=== PATIENT | female | born 1985 | race Two or more races ===

== ENCOUNTER 2022-01-09 22:50 | Emergency (ER) | payer OTHER ==
[~2022-01-09] VITALS: Ht 162.6 cm; Wt 103.4 kg
[2022-01-09 22:50] VITALS: BP 148/88
[2022-01-09 23:36] LABS: Eosinophils # (auto) 0.3 10 ^3/uL (0-0.8); Hemoglobin 10.7 g/dL (12.2-16.2); Lymphocytes # (auto) 2.8 10 ^3/uL (0.4-5.4); Mean Corpuscular Volume 63.6 fL (80.0-100.0); Monocytes # (auto) 0.5 10 ^3/uL (0-1.3); Monocytes % (auto) 4.3 % (0.0-12.0); Neutrophils # (auto) 7.2 10 ^3/uL (1.6-8.6); Nucleated Red Blood Cells % 0.1 %; White Blood Cell 10.8 10^3/uL (4.4-10.8)
[2022-01-09 23:38] LABS: Basophils # (auto) 0 10 ^3/uL (0-0.2); Basophils % (auto) 0.5 % (0.0-2.0); Eosinophils % (auto) 2.5 % (0.0-7.0); Hematocrit 34.5 % (36.0-46.0); Lymphocytes % (auto) 25.6 % (10.0-50.0); Mean Corpuscular Hemoglobin 19.7 pg (28.0-32.0); Mean Corpuscular Hgb Conc. 31.1 g/dL (32.0-36.0); Neutrophils % (auto) 67.1 % (37.0-80.0); Red Blood Cells 5.42 10^6/uL (4.0-5.20)
[2022-01-09 23:43] LABS: Red Cell Distribution Width 20.3 % (11.8-14.3)
[2022-01-10 00:01] LABS: Albumin 3.6 g/dL (3.4-5.0); BUN/Creatinine Ratio 13.2; Calcium 8.9 mg/dL (8.5-10.1); Potassium 3.7 mmol/L (3.5-5.1)
[2022-01-10 00:04] LABS: Bilirubin, Total 0.2 mg/dL (0.2-1.0); Total Protein 7.7 g/dL (6.4-8.2)
[2022-01-10] MEDS ORDERED: MECL1TAB42 PO (00:09)
== END 2022-01-10 02:31 | disposition home or self-care (01) ==
LOC: ER 22:52
DX: D64.9 Anemia, unspecified (principal); R42 Dizziness and giddiness
CPT/HCPCS: 36415; 70450; 80053; 85025

== ENCOUNTER 2022-11-16 18:31 | Emergency (ER) | payer OTHER ==
[~2022-11-16 18:31] MED LIST: MECL1TAB42 PO
[2022-11-16] MEDS ORDERED: PRED20TA2 PO (22:39)
[2022-11-16] MEDS ORDERED: AMOX-277 PO (22:39)
[2022-11-16] MEDS ORDERED: methylPREDNISolone SOD SUCC 125 MG/2 ML VL IM ONE (22:45)
[2022-11-16] MEDS ORDERED: cefTRIAXone SOD 1,000 MG VL IM ONE (22:45)
[2022-11-16 23:09] VITALS: BP 124/73
[2022-11-16] MEDS ORDERED: ACETAMINOPHEN 325 MG TAB PO ONE (23:30)
== END 2022-11-17 00:28 | disposition home or self-care (01) ==
LOC: ER 18:33
DX: J06.9 Acute upper respiratory infection, unspecified (principal); J45.909 Unspecified asthma, uncomplicated; Z20.822 Contact with and (suspected) exposure to COVID-19
CPT/HCPCS: 36415; 87426; 87804; 96372; 99284; J0696; J2930

== ENCOUNTER 2024-04-11 11:19 | Emergency (ER) | payer BC, OTHER ==
[~2024-04-11] VITALS: Ht 162.6 cm; Wt 100.2 kg
[~2024-04-11 11:19] MED LIST changes: +AMOX875T4 PO; +PRED20TA2 PO
[2024-04-11 13:36] VITALS: BP 148/87; PULSE 88; RESP 16; TEMP 98.4; O2SAT 100
[2024-04-11] MEDS: ONDANSETRON ODT 4 MG TAB PO ONE (14:05)
[2024-04-11] MEDS: KETOROLAC TROMETH 30 MG/ML 1ML VIAL IM ONE (14:05)
[2024-04-11] MEDS ORDERED: SUMA50TA16 PO (15:03)
[2024-04-11] MEDS ORDERED: ZOFR4T PO (15:03)
== END 2024-04-11 15:07 | disposition home or self-care (01) ==
LOC: ER 11:19
DX: R51.9 Headache, unspecified (principal); J45.909 Unspecified asthma, uncomplicated; Z79.52 Long term (current) use of systemic steroids; Z79.899 Other long term (current) drug therapy
CPT/HCPCS: 70450; 96372; 99285; J1885; Q0162

== ENCOUNTER 2025-04-12 23:01 | Inpatient (IN) | payer BC, OTHER ==
[~2025-04-12] VITALS: Ht 163.8 cm; Wt 104.3 kg
[~2025-04-12 23:01] MED LIST changes: +SUMA50TA16 PO; +ZOFR4T PO
[2025-04-13] VITALS (15 sets, daily range): BP systolic 119–146; BP diastolic 67–91; PULSE 66–95; RESP 16–18; TEMP 97.5–98.6; O2SAT 95–99
--- NOTE | 2025-04-13 00:21 | ED.PDOC ---
History of Present Illness HPI Comments 39-year-old female with a history of heavy menses, anemia and asthma brought in by family, referred by primary doctor for evaluation of anemia. Patient states for over a month, has been having episodes of dizziness, fatigue, weakness, shortness of breath, and dyspnea with mild exertion. Patient states she was seen by her primary physician on 04/04/25, and was contacted today, advised her hemoglobin was 6 and that she should go to the emergency room. Patient reports her last menstrual period was 03/15-04/02/2025. She states she began spotting today. She denies any abdominal pain, chest pain, syncope, vision changes or focal weakness. Chief Complaint: Dizziness Time Seen by MD: 00:21 Primary Care Provider: JAD Jules Notes: Nurses Notes Allergies: Coded Allergies: NO KNOWN ALLERGIES (Unverified , 01/09/22) Home Meds Active Scripts Ondansetron Odt 4MG Tab (ZOFRAN PO) 4 Mg Tb, 4 MG PO Q8HP PRN for 5 Days, #15 TAB ODT TAB-DISSOLVE IN MOUTH, THEN SWALLOW Prov:SHANNAN DELACRUZ NP 04/11/24 Sumatriptan Succinate (Sumatriptan Succinate) 50 Mg Tab, 50 MG PO BIDPRN PRN for 5 Days, #10 TAB Prov:SHANNAN DELACRUZ NP 04/11/24 Amoxicillin & Pot Clavulanate (Amoxicillin/Potassium Cla) 875 Mg Tab, 1 TAB PO BID for 7 Days, #14 TAB 0 Refills Prov:SANDRA CASTELLANOS 11/16/22 Prednisone (Prednisone) 20 Mg Tab, 20 MG PO BID for 5 Days, #10 TAB 0 Refills Prov:SANDRA CASTELLANOS 11/16/22 Meclizine HCl (Meclizine 25) 25 Mg Tab, 25 MG PO DAILY for 10 Days, #10 TAB Prov:YEFRI UNDERWOOD MD 01/10/22 Information Source: Patient Mode of Arrival: Ambulatory Severity: Moderate Timing: Days Duration: Since onset Past Medical History PAST MEDICAL HISTORY: Anemia, Asthma Surgical History (Other): Colposcopy MEDICAL EDITOR History: Other (Heavy, irregular menses.) Family History Family History: Reviewed,noncontributory to illness Social History Smoker: Non-Smoker Alcohol: Denies ETOH Use Drugs: Denies Drug Use Lives In: Home Constitutional: reports: fatigue, weakness; denies: chills, diaphoresis, fever, malaise, sweats, others EENTM: denies: blurred vision, double vision, ear bleeding, ear discharge, ear drainage, ear pain, ear ringing, eye pain, eye redness, hearing loss, mouth pain, mouth swelling, nasal discharge, nose bleeding, nose congestion, nose pain, photophobia, tearing, throat pain, throat swelling, voice changes, others Respiratory: reports: SOB at rest, shortness of breath, SOB with excertion; denies: cough, hemoptysis, orthopnea, stridor, wheezing, others Cardiovascular: denies: chest pain, dizzy spells, diaphoresis, Dyspnea on exertion, edema, irregular heart beat, left arm pain, lightheadedness, palpitations, PND, syncope, others Gastrointestinal: denies: abdomen distended, abdominal pain, blood streaked bowels, constipated, diarrhea, dysphagia, difficulty swallowing, hematemesis, melena, nausea, poor appetite, poor fluid intake, rectal bleeding, rectal pain, vomiting, others Genitourinary: denies: abnormal vagina bleeding, burning, dyspareunia, dysuria, flank pain, frequency, hematuria, incontinence, pain, , vagina discharge, urgency, others Neurological: reports: dizziness; denies: fainting, headache, left sided numbness, left sided weakness, numbness, paresthesia, pre-existing deficit, right sided numbness, right sided weakness, seizure, speech problems, tingling, tremors, weakness, others Musculoskeletal: denies: back pain, gout, joint pain, joint swelling, muscle pain, muscle stiffness, neck pain, others Integumetry: denies: bruises, change in color, change in hair/nails, dryness, laceration, lesions, lumps, rash, wounds, others Allergic/Immunocompromised: denies: Difficulty Healing, Frequent Infections, Hives, Itching, others Hematologic/Lymphatic: denies: anemia, blood clots, easy bleeding, easy bruising, swollen glands, others Endocrine: denies: excessive hunger, excessive sweating, excessive thirst, excessive urination, flushing, intolerance to cold, intolerance to heat, unexplained weight gain, unexplained weight loss, others Psychiatric: denies: anxiety, bipolar disorder, depression, hopeless, panic disorder, schizophrenia, sleepless, suicidal, others Physical Exam General Appearance: No Apparent Distress, Obese HEENT: Pale Conjuntivae (L), Pale Conjuntivae (R), Other (Pupils and face symmetric. Moist mucous membranes.) Neck: Full Range of Motion, Normal Inspection Respiratory: Lungs Clear, No Accessory Muscle Use, No Respiratory Distress, Normal Breath Sounds Cardiovascular: No Edema, No JVD, Regular Rate/Rhythm Breast Exam: Deferred Gastrointestinal: Non Tender, Soft Genitalia: Deferred Pelvic: Deferred Rectal: Deferred Extremities: Normal inspection, Normal range of motion, Non-tender, No pedal edema Neurologic: Alert (Oriented x4), Normal Affect, Normal Mood, Other (Ambulatory) Cerebellar Function: NOT DONE Reflexes: NOT DONE Skin: Dry, Pallor, Warm Lymphatic: NOT DONE Was a procedure done? Was a procedure done?: No Differential Dx Considerations may include: Anemia, coagulopathy, dehydration/hypovolemia, electrolyte imbalance, arrhythmia, among others X-Ray, Labs, Meds, VS Vital Signs Date Time Temp Pulse Resp B/P (MAP) Pulse Ox O2 Delivery O2 Flow Rate FiO2 04/13/25 00:00 98.2 94 20 152/87 (108) 99 98.2 Lab Test 04/13/25 00:55 04/13/25 00:08 Range/Units Troponin I High Sensitivity < 3 L < 3 L </=34 ng/L White Blood Count 9.8 4.4-10.8 10^3/uL Red Blood Count 4.39 4.0-5.20 10^6/uL Hemoglobin 6.6 *L 12.2-16.2 g/dL Hematocrit 23.5 L 36.0-46.0 % Mean Corpuscular Volume 53.6 L 80.0-100.0 fL Mean Corpuscular Hemoglobin 15.0 L 28.0-32.0 pg Mean Corpuscular Hemoglobin Concent 28.0 L 32.0-36.0 g/dL Red Cell Distribution Width 23.1 H 11.8-14.3 % Platelet Count 293 140-450 10^3/uL Mean Platelet Volume 8.3 6.9-10.8 fL Neutrophils (%) (Auto) 67.1 37.0-80.0 % Lymphocytes (%) (Auto) 27.0 10.0-50.0 % Monocytes (%) (Auto) 3.6 0.0-12.0 % Eosinophils (%) (Auto) 1.6 0.0-7.0 % Basophils (%) (Auto) 0.7 0.0-2.0 % Neutrophils # (Auto) 6.6 1.6-8.6 10 ^3/uL Lymphocytes # (Auto) 2.6 0.4-5.4 10 ^3/uL Monocytes # (Auto) 0.4 0-1.3 10 ^3/uL Eosinophils # (Auto) 0.2 0-0.8 10 ^3/uL Basophils # (Auto) 0.1 0-0.2 10 ^3/uL Nucleated Red Blood Cells 0.0 % Platelet Estimate Adequate Hypochromasia (manual) Moderate Anisocytosis (manual) Slight Microcytosis Moderate Ovalocytes Few Stomatocytes Moderate Prothrombin Time 10.4 9.3-11.8 sec Prothrombin Time INR 0.98 0.9-1.15 Activated Partial Thromboplast Time 24.5 24.5-34.5 SEC Sodium Level 141 136-145 mmol/L Potassium Level 3.8 3.5-5.1 mmol/L Chloride Level 106 98-107 mmol/L Carbon Dioxide Level 27 20-31 mmol/L Anion Gap 8 5-15 Blood Urea Nitrogen 12 9-23 mg/dL Creatinine 0.76 0.550-1.02 mg/dL Glomerular Filtration Rate Calc 103 >90 mL/min BUN/Creatinine Ratio 15.8 10.0-20.0 Serum Glucose 149 H 74-106 mg/dL Calcium Level 9.5 8.7-10.4 mg/dL X-Ray, Labs, Meds, VS Comment 39-year-old female with a history of heavy/ irregular menses and anemia referred by primary physician for evaluation of severe anemia Vitals remarkable for BP 152/87 Exam remarkable for pallor Rhythm strip independently interpreted by me: Sinus rhythm, rate 94, no ectopy. CBC remarkable for hemoglobin 6.6, hematocrit 23.5, basic metabolic panel unremarkable, coagulation panel normal Patient treated with the following in the ED: Typed and crossed for 2 units of packed red cells and transfusion ordered. Plan is to admit the patient for transfusion and hemoglobin trend. Time of 1ST Reevaluation: 00:14 Reevaluation 1ST: Unchanged Patient Education/Counseling: Diagnosis, Treatment Family Education/Counseling: No Family Present SEPSIS Sepsis Screen Physician Orders Electrocardigram (04/13/25 00:02) Type And Screen (04/13/25 00:02) Vital Signs Date Time Temp Pulse Resp B/P (MAP) Pulse Ox O2 Delivery O2 Flow Rate FiO2 04/13/25 00:00 98.2 94 20 152/87 (108) 99 98.2 Laboratory Tests Test 04/13/25 00:08 White Blood Count 9.8 10^3/uL (4.4-10.8) Departure 1 Departure Time of Disposition: 02:02 Impression: Primary Impression: Symptomatic anemia Disposition: ADMITTED INPATIENT Admit to: Med Surg Condition: Guarded Critical Care Note Critical Care Time?: No Stability Stability form required: No Heart Score Heart Score: Heart Score Response (Comments) Value History N/A 0 EKG N/A 0 Age N/A 0 Risk Factors N/A 0 Troponin N/A 0 Total 0 I personally scribed for CRISTHIAN SOLOMON MD ([email or web address]) on 04/13/25 at 00:21. Electronically submitted by Fabien Israel ([facility]). CRISTHIAN SOLOMON MD Apr 13, 2025 00:21
[2025-04-13 00:31] LABS: Nucleated Red Blood Cells % 0.0 %
[2025-04-13 00:32] LABS: Hematocrit 23.5 % (36.0-46.0); Mean Corpuscular Hemoglobin 15.0 pg (28.0-32.0); Mean Corpuscular Volume 53.6 fL (80.0-100.0)
[2025-04-13 00:36] LABS: Hemoglobin 6.6 g/dL (12.2-16.2)
[2025-04-13 00:38] LABS: Chloride 106 mmol/L (98-107); Potassium 3.8 mmol/L (3.5-5.1); Sodium 141 mmol/L (136-145)
[2025-04-13 00:39] LABS: Anion Gap 8 (5-15); Carbon Dioxide 27 mmol/L (20-31)
[2025-04-13 00:40] LABS: Calcium 9.5 mg/dL (8.7-10.4)
[2025-04-13 00:44] LABS: BUN/Creatinine Ratio 15.8 (10.0-20.0); Blood Urea Nitrogen 12 mg/dL (9-23); INR 0.98 (0.9-1.15); Partial Thromboplastin Time 24.5 SEC (24.5-34.5); Prothrombin Time 10.4 sec (9.3-11.8)
[2025-04-13 00:45] LABS: Glucose 149 mg/dL (74-106)
[2025-04-13 01:29] LABS: Anisocytosis Slight
[2025-04-13 01:34] LABS: Ovalocytes FEW; Stomatocytes Moderate
[2025-04-13] MEDS ORDERED: ONDANSETRON HCL 4 MG/2 ML VIAL IV PRN (02:15)
[2025-04-13] MEDS: SODIUM CHLORIDE 0.9% 1,000 ML IV SCH (02:15)
[2025-04-13] MEDS ORDERED: DOCUSATE SOD 100 MG CAP PO PRN (02:15)
--- NOTE | 2025-04-13 02:20 | DVHHP2 ---
History of Present Illness Reason for Visit: Symptomatic anemia History of Present Illness The patient is a 39-year-old female with past medical history of asthma and anemia who presented to [facility] ED with complaint of generalized weakness. Patient reports she has been experiencing generalized weakness, episodes of dizziness, fatigue, shortness of breaths, dyspnea with mild exertion for the past 1 month. Patient states she was seen by her primary physician on 04/04/25, and was contacted today, advised her hemoglobin was 6 and that she should go to the emergency room. Patient was seen and evaluated in the ED, laboratory data shows WBC 9.8, hemoglobin 6.6, hematocrit 23.5, platelets 285, sodium 141, potassium 3.8, BUN 12, creatinine 0.76, calcium 9.5, glucose 149, troponin 3, blood pressure 132/67, heart rate 76, temperature 98.8 F, O2 saturation 99% on oxygen. Patient was found to have symptomatic anemia and will receive 2 units of PRBC, please see medication orders section in the computer. On my assessment, patient denied chest pain, no headache, no dizziness, no diaphoresis, currently on oxygen, no nausea, no vomiting, no fever, no chills. Patient was admitted for further evaluation and medical management. Past Medical History Anemia, Asthma, Heavy menses Past Surgical History Colposcopy Family History Reviewed, noncontributory to the management of this case. Past Social History The patient lives at home, denies smoking, alcohol or illicit drugs abuse. Review of Systems Constitutional: Yes: Weakness, Other (Fatigue); No: Fever, Chills, Sweats, Malaise Eyes: No: Pain, Vision change, Conjunctivae inflammation, Eyelid inflammation, Other, Redness ENT: No: Ear pain, Ear discharge, Nose pain, Nose discharge, Nose congestion, Mouth pain, Mouth swelling, Throat pain, Throat swelling, Other Respiratory: Shortness of breath, SOB with excertion, Other (SOB at rest); No: Cough, Dry, Wheezing, Hemoptysis, Pleuritic Pain, Sputum, Wheezing Cardiovascular: No: Chest Pain, Palpitations, Orthopnea, Paroxysmal Noc. Dyspnea, Edema, Lt Headedness, Other Gastrointestinal: No: Nausea, Vomiting, Abdominal Pain, Diarrhea, Constipation, Melena, Hematochezia, Other Genitourinary: No Dysuria, No Frequency, No Incontinence, No Hematuria, No Rete ntion, No Other Musculoskeletal: No: other, neck pain, shoulder pain, arm pain, back pain, hand pain, leg pain, foot pain Skin: No: Rash, Lesions, Jaundice, Bruising, Other Neurological: No: Weakness, Numbness, Incoordination, Change in speech, Confusion, Seizures, Other Allergies: Coded Allergies: NO KNOWN ALLERGIES (Unverified , 01/09/22) Medications Current Medications Medications Dose Ordered Sig/Sidney Route Start Time Stop Time Status Last Admin Dose Admin Sodium Chloride 1,000 ml @ 60 mls/hr [id number] IV 04/13/25 02:15 Acetaminophen/ Hydrocodone Bitart 1 tab Q4HP PRN PO 04/13/25 02:15 Ondansetron HCl 4 mg Q4HP PRN IV 04/13/25 02:15 Docusate Sodium 100 mg BIDPRN PRN PO 04/13/25 02:15 Acetaminophen 650 mg Q6HP PRN PO 04/13/25 02:15 Exam Vital Signs Vital Signs Date Time Temp Pulse Resp B/P (MAP) Pulse Ox O2 Delivery O2 Flow Rate FiO2 04/13/25 00:00 98.2 94 20 152/87 (108) 99 98.2 General Appearance: Alert, Oriented X3, Cooperative, No acute distress HEENT: Atraumatic, PERRLA, EOMI, Mucous membr. moist/pink Respiratory: Normal air movement, Other (Shortness of breaths) Cardiovascular: Regular rate, Normal S1, Normal S2, No murmurs Abdominal: Normal bowel sounds, Soft, No tenderness, No hepatospenomegaly, No masses Extremities: No clubbing, No cyanosis, No edema, Normal pulses, No tenderness/swelling Skin: No rashes, No breakdown, No significant lesion Neuro: Normal speech, Normal tone, Sensation intact, Cranial nerves 3-12 NL, Reflexes 2+, Other (Generalized weakness) Psych/Mental Status: Mental status NL, Mood NL Labs/Xrays Labs Test 04/13/25 00:55 04/13/25 00:08 Range/Units Troponin I High Sensitivity < 3 L </=34 ng/L White Blood Count 9.8 4.4-10.8 10^3/uL Red Blood Count 4.39 4.0-5.20 10^6/uL Hemoglobin 6.6 *L 12.2-16.2 g/dL Hematocrit 23.5 L 36.0-46.0 % Mean Corpuscular Volume 53.6 L 80.0-100.0 fL Mean Corpuscular Hemoglobin 15.0 L 28.0-32.0 pg Mean Corpuscular Hemoglobin Concent 28.0 L 32.0-36.0 g/dL Red Cell Distribution Width 23.1 H 11.8-14.3 % Platelet Count 293 140-450 10^3/uL Mean Platelet Volume 8.3 6.9-10.8 fL Neutrophils (%) (Auto) 67.1 37.0-80.0 % Lymphocytes (%) (Auto) 27.0 10.0-50.0 % Monocytes (%) (Auto) 3.6 0.0-12.0 % Eosinophils (%) (Auto) 1.6 0.0-7.0 % Basophils (%) (Auto) 0.7 0.0-2.0 % Neutrophils # (Auto) 6.6 1.6-8.6 10 ^3/uL Lymphocytes # (Auto) 2.6 0.4-5.4 10 ^3/uL Monocytes # (Auto) 0.4 0-1.3 10 ^3/uL Eosinophils # (Auto) 0.2 0-0.8 10 ^3/uL Basophils # (Auto) 0.1 0-0.2 10 ^3/uL Nucleated Red Blood Cells 0.0 % Platelet Estimate Adequate Hypochromasia (manual) Moderate Anisocytosis (manual) Slight Microcytosis Moderate Ovalocytes Few Stomatocytes Moderate Prothrombin Time 10.4 9.3-11.8 sec Prothrombin Time INR 0.98 0.9-1.15 Activated Partial Thromboplast Time 24.5 24.5-34.5 SEC Sodium Level 141 136-145 mmol/L Potassium Level 3.8 3.5-5.1 mmol/L Chloride Level 106 98-107 mmol/L Carbon Dioxide Level 27 20-31 mmol/L Anion Gap 8 5-15 Blood Urea Nitrogen 12 9-23 mg/dL Creatinine 0.76 0.550-1.02 mg/dL Glomerular Filtration Rate Calc 103 >90 mL/min BUN/Creatinine Ratio 15.8 10.0-20.0 Serum Glucose 149 H 74-106 mg/dL Calcium Level 9.5 8.7-10.4 mg/dL Assessment/Plan Assessment/Plan Symptomatic anemia Generalized weakness Plan 1. Admit to telemetry unit 2. Breathing treatment 3. Pain control management 4. Management of fluids and electrolytes 5. Consultation for hospitalist 6. Diagnostic tests chest x-ray 7. DVT prophylaxis on SCDs 8. Repeat labs CBC, CMP in a.m. 9. Continue with current medical management 10. Treatment plan discussed with patient and RN. Patient verbalized understanding. Plan discussed with: Patient, Other (R.N.) My Orders Orders - MARANDA WARE DNP Procedure Category Date Status Time Complete Blood Count LAB 04/13/25 Logged 04:00 Comprehensive LAB 04/13/25 Logged Metabolic Panel 04:00 Allergies [place] 04/13/25 In Process 02:04 Code Status CODE 04/13/25 Transmitted 02:04 2 Gm Sodium Diet DIET 04/13/25 Transmitted Breakfast Sodium Chloride 0.9% PHA 04/13/25 In Process 02:15 Oxygen Per Hour RT 04/13/25 Transmitted 02:04 Hydrocodone-Acet PHA 04/13/25 In Process 5/325mg Tab ([place] 02:15 Ondansetron Hcl PHA 04/13/25 In Process (Zofran) 02:15 Docusate Sodium PHA 04/13/25 In Process Capsule (Colace 02:15 Fall Risk Precautions [place] 04/13/[address] 02:04 Complete Blood Count LAB 04/14/25 Verified 04:00 Comprehensive LAB 04/14/25 Verified Metabolic Panel 04:00 Condition: Serious [place] 04/13/25 In Process 02:04 Acetaminophen Tablet PHA 04/13/25 In Process (Tylenol Tablet) 02:15 Maintain Bed Rest [place] 04/13/25 In Process 02:04 Sequential [place] 04/13/25 In Process Compression Device Admit ADMIT 04/13/25 Verified 02:18 Nitroglycerin PHA 04/13/25 Verified Sublingual (Ntrostat 02:30 Morphine Sulfate PHA 04/13/25 Verified Injection 02:30 Stat Ekg For Chest [facility] 04/13/25 Verified Pain 02:18 Notify Md Of Changes [place] 04/13/25 Verified From Base 02:18 Candy Vendor For [facility] 04/13/25 Verified 24 Hours 02:18 Emergency Dysrhythmia [facility] 04/13/25 Verified Protocol 02:18 Rhythm Strips Once 04/13/25 Verified Every Shift 02:18 Oxygen By Nasal RT 04/13/25 Verified Cannula 02:18 Problem List: (1) Symptomatic anemia (2) Generalized weakness Date of Service: Apr 13, 2025 Billing Provider: MARANDA WARE DNP Common Visit Codes: [id number] INP/OBS CARE (HIGH) MARANDA WARE DNP Apr 13, 2025 02:19
[2025-04-13] MEDS ORDERED: NITROGLYCERIN 0.4 MG SL TAB SL PRN (02:30)
[2025-04-13] MEDS ORDERED: MORPHINE SULFATE INJ 2 MG/ml SYRG IV PRN (02:30)
[2025-04-13 04:03] LABS: Alanine Aminotransferase 27 U/L (7-40); Albumin 4.6 g/dL (3.2-4.8); Alkaline Phosphatase 82 U/L (46-116); Anion Gap 9 (5-15); BUN/Creatinine Ratio 12.9 (10.0-20.0); Blood Urea Nitrogen 9 mg/dL (9-23); Calcium 9.6 mg/dL (8.7-10.4); Carbon Dioxide 23 mmol/L (20-31); Chloride 106 mmol/L (98-107); Potassium 4.7 mmol/L (3.5-5.1); Sodium 138 mmol/L (136-145); Total Protein 7.5 g/dL (5.7-8.2)
[2025-04-13 04:04] LABS: Bilirubin, Total 0.5 mg/dL (0.2-1.0)
[2025-04-13 04:07] LABS: Glucose 135 mg/dL (74-106)
[2025-04-13 04:18] LABS: Mean Corpuscular Hemoglobin 15.2 pg (28.0-32.0); Mean Corpuscular Volume 55.8 fL (80.0-100.0)
[2025-04-13 04:20] LABS: Hematocrit 24.6 % (36.0-46.0); Nucleated Red Blood Cells % 0.1 %
[2025-04-13 04:39] LABS: Hemoglobin 6.7 g/dL (12.2-16.2)
[2025-04-13 13:53] LABS: Hematocrit 29.0 % (36.0-46.0); Hemoglobin 8.5 g/dL (12.2-16.2)
--- NOTE | 2025-04-13 14:43 | DVHPNRES ---
Progress Note Date Seen: Apr 13, 2025 Resident Creating Document: DOMINICK TALAVERA RESIDENT Has the PT tested + for MRSA If YES, has PT been informed?: No Medical Necessity Reason Pt with a Central, PICC or Fol: No Subjective Review of Systems This is a 39-year-old female with past medical history of asthma, anemia, heavy menstrual periods irregular in nature, who presented to the ED with chief complaint of generalized weakness fatigue and shortness of breaths. The patient reports that the symptoms has been occurring for the past three weeks end-stage that she received a call from her PCP stating that her hemoglobin was significantly low and that she needed to come to the ED for further assessment and management. Upon admission, patient was reporting generalized weakness, fatigue, low energy. The patient denied chest pain, abdominal pain, fever/chills or any other associated symptoms. Initial labs showed a hemoglobin of 6.6 for which the patient was ordered to receive two packs of red blood cells. We ordered stool occult blood test, Von Willebrand factor antigen, rubs cold aside count, pelvic ultrasound and peripheral smear. We will repeat hemoglobin and hematocrit and monitor closely for severe anemia. Upon my examination, the patient is not reporting any abdominal or pelvic pain at this time. There is no evidence of active bleeding at this time. Patient does reports spotting vaginally gee. Patient seen and examined at bedside. Patient denies abdominal pain, pelvic pain, chest pain, fever/chills or any other associated symptoms at this time. Patient still reports feeling weak and fatigued. We will order stool occult blood test, reticulocyte count, we will umbilical factor antigen, pelvic ultrasound and peripheral smear. Meanwhile, we will monitor hemoglobin and hematocrit. We will continue with IV fluids. ROS Constitutional: Reports generalized weakness and fatigue with decreased energy. Denies weight loss, fever and chills. HEENT: Denies changes in vision and hearing. Respiratory: Denies shortness of breath and cough Cardiovascular: Denies chest discomfort or palpitations GI: Denies abdominal pain, nausea, vomiting and diarrhea. : Denies dysuria and urinary frequency. Musculoskeletal: Denies myalgias and joint pain Skin: Denies rash and pruritus. Neurological: Denies dizziness, headache, vision or hearing problems Objective vital signs Vital Sign Date Time Temp Pulse Resp B/P (MAP) Pulse Ox O2 Delivery O2 Flow Rate FiO2 04/13/25 13:00 98.5 66 18 132/84 (100) 97 98.5 04/13/25 08:10 Room Air* 0 21 Total Intake and Output 04/12/25 04/12/25 04/13/25 15:00 23:00 07:00 Intake Total 0 ml Output Total 0 ml Balance 0 ml medications Current Medications Medications Dose Ordered Sig/Sidney Route Start Time Stop Time Status Last Admin Dose Admin Sodium Chloride 1,000 ml @ 60 mls/hr [id number] IV 04/13/25 02:15 04/13/25 02:15 60 MLS/HR Acetaminophen/ Hydrocodone Bitart 1 tab Q4HP PRN PO 04/13/25 02:15 Ondansetron HCl 4 mg Q4HP PRN IV 04/13/25 02:15 Docusate Sodium 100 mg BIDPRN PRN PO 04/13/25 02:15 Acetaminophen 650 mg Q6HP PRN PO 04/13/25 02:15 Nitroglycerin 0.4 mg Q5MINP PRN SL 04/13/25 02:30 Morphine Sulfate 2 mg Q30M PRN IV 04/13/25 02:30 Examination Physical Examination General: Patient alert and oriented in person, place and time. Patient following commands. HEENT: Normocephalic, atraumatic, moist mucous membranes Respiratory/pulmonary: Clear lungs bilaterally, no associated crackles or wheezes. Cardiovascular: Normal heart sounds S1 and S2 with no associated murmurs Abdomen: Abdomen nondistended, there is no pain to palpation in any of the abdominal quadrants, no palpable masses. Extremities: There is no peripheral edema present at the lower extremities. Skin: No rashes or pruritus, there is no sacral edema present at this time. Neurological: Intact cranial nerves with no focal neurologic deficits laboratory and microbiology Laboratory Tests 04/13/25 13:19 04/13/25 03:35 Test 04/13/25 03:35 Range/Units Serum Glucose 135 H 74-106 mg/dL Problem List/Assessment/Plan Problem List/Assessment/Plan Assessment/plan Acute severe microcytic hypochromic anemia likely due to severe menorrhagia Severe menorrhagia History of heavy irregular menstrual bleeding -initially hemoglobin was 6.6 -2 packet of red blood cells was given -we will recheck and monitor hemoglobin and hematocrit -continue IV fluids -ordered pelvic ultrasound -ordered peripheral smear -order reticulocyte count -ordered stool occult blood test -ordered Von willebrand factor antigen History of asthma, controlled -monitor, patient is currently on room air Goals of care discussed with the patient at bedside for >35min, FULL CODE Plan discussed with Dr. Mas Plan discussed with: Patient My Orders My Orders Orders - DOMINICK TALAVERA Procedure Category Date Status Time Urinalysis LAB 04/13/25 Logged 10:07 Drug Screen LAB 04/13/25 Logged 10:07 DOMINICK TALAVERA Apr 13, 2025 14:43
[2025-04-13 15:14] LABS: Wright Stain Ready for Review
--- NOTE | 2025-04-13 18:01 | DVH ---
Procedure: US PELVIC Study Date and Requested Time: 04/13/2025 02:44 PM Study Description: US PELVIC History: eval uterine lining and cause of bleeding Comparison: None Technique: Multiple transabdominal and transvaginal high resolution craig-scale images obtained of the uterus and adnexa with color Doppler for evaluation of adnexal blood flow and vascularity as indicat ed. Findings: Uterus measures 3.3 x 2.9 x 2.9 cm, with heterogeneous echotexture. Endometrium within normal limits, measuring 1 cm in thickness with smooth contour. Cervix within normal limits. Right ovary measures 3.3 x 2.9 x 2.9 cm with a 1 cm cyst /dominant follicle. Left ovary measures 3 x 2.3 x 2.6 cm with a 1.1 cm cyst /dominant follicle. Normal ovarian color Doppler flow bilaterally. No evidence of cystic or solid ovarian lesions. No evidence of free fluid in the cul-de-sac. Impression: Heterogeneous echotexture of the uterus. Endometrial thickness of 1 cm which is within normal limits . Recommend correlation with phase of menstrual cycle. 1 cm right and 1.1 cm left ovarian cyst/dominant follicles.
[2025-04-13] MEDS: ACETAMINOPHEN 325 MG TAB PO PRN (18:32)
[2025-04-14] VITALS (7 sets, daily range): BP systolic 118–138; BP diastolic 79–99; PULSE 18–79; RESP 16–97; TEMP 96.5–97.7; O2SAT 96–99
[2025-04-14] MEDS: HYDROcodone-ACET 5/325MG TAB PO PRN (01:03)
[2025-04-14 02:46] LABS: Urine Budding Yeast OCCASIONAL /hpf (None Seen); Urine Protein, UAD Negative (Negative)
[2025-04-14 03:13] LABS: Amphetamine Screen, Urine Neg (NEGATIVE); Barbiturate Scree,Urine Neg (NEGATIVE); Benzodiazephine Screen, Urine Neg (NEGATIVE); Cocaine Screen, Urine Neg (NEGATIVE)
[2025-04-14 03:14] LABS: Cannabinoid Screen, Urine Neg (NEGATIVE); Opiate Scree,Urine Neg (NEGATIVE); Phencyclidine Screen, Urine Neg (NEGATIVE)
[2025-04-14 07:38] LABS: Hematocrit 30.3 % (36.0-46.0); Hemoglobin 9.0 g/dL (12.2-16.2); Mean Corpuscular Hemoglobin 18.1 pg (28.0-32.0); Mean Corpuscular Volume 61.0 fL (80.0-100.0); Nucleated Red Blood Cells % 0.1 %
[2025-04-14 07:52] LABS: Alanine Aminotransferase 21 U/L (7-40); Albumin 4.2 g/dL (3.2-4.8); Alkaline Phosphatase 75 U/L (46-116); Anion Gap 9 (5-15); BUN/Creatinine Ratio 11.4 (10.0-20.0); Blood Urea Nitrogen 9 mg/dL (9-23); Calcium 10.1 mg/dL (8.7-10.4); Carbon Dioxide 25 mmol/L (20-31); Chloride 107 mmol/L (98-107); Potassium 4.1 mmol/L (3.5-5.1); Sodium 141 mmol/L (136-145); Total Protein 7.1 g/dL (5.7-8.2)
[2025-04-14 07:53] LABS: Bilirubin, Total 0.7 mg/dL (0.2-1.0); Glucose 111 mg/dL (74-106)
[2025-04-14 08:34] LABS: Anisocytosis Moderate
[2025-04-14 08:35] LABS: Ovalocytes FEW; Stomatocytes Few
[2025-04-14] MEDS: FERROUS SULFATE 325mg EC TAB PO SCH (08:35)
[2025-04-14 10:05] LABS: Hematocrit 30.4 % (36.0-46.0); Hemoglobin 8.9 g/dL (12.2-16.2); Mean Corpuscular Hemoglobin 18.0 pg (28.0-32.0); Mean Corpuscular Volume 61.0 fL (80.0-100.0); Nucleated Red Blood Cells % 0.1 %
--- NOTE | 2025-04-14 13:07 | DVHPNRES ---
Progress Note Date Seen: Apr 14, 2025 Resident Creating Document: DOMINICK TALAVERA RESIDENT Has the PT tested + for MRSA If YES, has PT been informed?: No Medical Necessity Reason Pt with a Central, PICC or Fol: No Subjective Review of Systems This is a 39-year-old female with past medical history of asthma, anemia, heavy menstrual periods irregular in nature, who presented to the ED with chief complaint of generalized weakness fatigue and shortness of breaths. The patient reports that the symptoms has been occurring for the past three weeks end-stage that she received a call from her PCP stating that her hemoglobin was significantly low and that she needed to come to the ED for further assessment and management. Upon admission, patient was reporting generalized weakness, fatigue, low energy. The patient denied chest pain, abdominal pain, fever/chills or any other associated symptoms. Initial labs showed a hemoglobin of 6.6 for which the patient was ordered to receive two packs of red blood cells. We ordered stool occult blood test, Von Willebrand factor antigen, rubs cold aside count, pelvic ultrasound and peripheral smear. We will repeat hemoglobin and hematocrit and monitor closely for severe anemia. Upon my examination, the patient is not reporting any abdominal or pelvic pain at this time. There is no evidence of active bleeding at this time. Patient does reports spotting vaginally gee. Patient seen and examined at bedside. Patient still feels minimally weak but states that has more energy. Patient was suggested to start walking more and getting more active. Patient denies any abdominal/pelvic pain, shortness of breath, chest pain, fever or chills. Patient still reports small vaginal spots but otherwise physical examination is grossly unremarkable. We started the patient on iron pills due to severe anemia. ROS Constitutional: Reports mild weakness and fatigue. Denies weight loss, fever and chills. HEENT: Denies changes in vision and hearing. Respiratory: Denies shortness of breath and cough Cardiovascular: Denies chest discomfort or palpitations GI: Denies abdominal pain, nausea, vomiting and diarrhea. : Denies dysuria and urinary frequency. Musculoskeletal: Denies myalgias and joint pain Skin: Denies rash and pruritus. Neurological: Denies dizziness, headache, vision or hearing problems Objective vital signs Vital Sign Date Time Temp Pulse Resp B/P (MAP) Pulse Ox O2 Delivery O2 Flow Rate FiO2 04/14/25 09:31 97.7 74 16 127/91 (103) 98 97.7 04/14/25 08:30 Room Air* 0 21 Total Intake and Output 04/13/25 04/13/25 04/14/25 15:00 23:00 07:00 Intake Total 600 ml 800 ml 1360 ml Output Total 1200 ml Balance 600 ml -400 ml 1360 ml medications Current Medications Medications Dose Ordered Sig/Sidney Route Start Time Stop Time Status Last Admin Dose Admin Sodium Chloride 1,000 ml @ 60 mls/hr [id number] IV 04/13/25 02:15 04/14/25 08:38 60 MLS/HR Acetaminophen/ Hydrocodone Bitart 1 tab Q4HP PRN PO 04/13/25 02:15 04/14/25 01:03 1 TAB Ondansetron HCl 4 mg Q4HP PRN IV 04/13/25 02:15 Docusate Sodium 100 mg BIDPRN PRN PO 04/13/25 02:15 Acetaminophen 650 mg Q6HP PRN PO 04/13/25 02:15 04/13/25 18:32 650 MG Nitroglycerin 0.4 mg Q5MINP PRN SL 04/13/25 02:30 Morphine Sulfate 2 mg Q30M PRN IV 04/13/25 02:30 Ferrous Sulfate 325 mg BIDWM PO 04/14/25 08:00 04/14/25 08:35 325 MG Examination Physical Examination General: Patient alert and oriented in person, place and time. Patient following commands. HEENT: Normocephalic, atraumatic, moist mucous membranes Respiratory/pulmonary: Clear lungs bilaterally, no associated crackles or wheezes. Cardiovascular: Normal heart sounds S1 and S2 with no associated murmurs Abdomen: Abdomen nondistended, there is no pain to palpation in any of the abdominal quadrants, no palpable masses. Extremities: There is no peripheral edema present at the lower extremities. Skin: No rashes or pruritus, there is no sacral edema present at this time. Neurological: Intact cranial nerves with no focal neurologic deficits laboratory and microbiology Laboratory Tests 04/14/25 08:39 04/14/25 06:33 Test 04/14/25 06:33 Range/Units Serum Glucose 111 H 74-106 mg/dL Problem List/Assessment/Plan Problem List/Assessment/Plan Assessment/plan Acute severe microcytic hypochromic anemia likely due to severe menorrhagia Severe menorrhagia History of heavy irregular menstrual bleeding -initially hemoglobin was 6.6, today hemoglobin is 9.0 -2 packet of red blood cells was given -we will recheck and monitor hemoglobin and hematocrit -continue IV fluids -ordered pelvic ultrasound which showed endometrial thickening of 1 cm which is within normal range. There is also a 1 cm/1.1 cm cyst in the right and left ovaries respectively. -ordered peripheral smear -order reticulocyte count came back slightly elevated at 2.67 -ordered stool occult blood test still pending -ordered Von willebrand factor antigen still pending History of asthma, controlled -monitor, patient is currently on room air Goals of care discussed with the patient at bedside for >35min, FULL CODE Plan discussed with Dr. Mas Plan discussed with: Patient My Orders My Orders Orders - DOMINICK TALAVERA RESIDENT Procedure Category Date Status Time Stool Occult Blood LAB 04/13/25 Logged 14:28 Von Willebrand Factor LAB 04/13/25 In Process (Vwf) Ag 14:28 Pelvic US 04/13/25 Resulted 14:28 Ferrous Sulfate Tablet PHA 04/14/25 In Process 08:00 * Bill Distributor Consultation CONS 04/14/25 Transmitted 12:40 DOMINICK TALAVERA RESIDENT Apr 14, 2025 13:07
[2025-04-15] VITALS (7 sets, daily range): BP systolic 118–139; BP diastolic 70–89; PULSE 69–76; RESP 18–20; TEMP 97.4–98.1; O2SAT 98–99
[2025-04-15 07:22] LABS: Hematocrit 30.0 % (36.0-46.0); Hemoglobin 8.8 g/dL (12.2-16.2); Mean Corpuscular Hemoglobin 18.1 pg (28.0-32.0); Mean Corpuscular Volume 61.4 fL (80.0-100.0); Nucleated Red Blood Cells % 0.1 %
[2025-04-15 07:33] LABS: Anion Gap 8 (5-15); Carbon Dioxide 27 mmol/L (20-31); Chloride 106 mmol/L (98-107); Potassium 4.0 mmol/L (3.5-5.1); Sodium 141 mmol/L (136-145)
[2025-04-15 07:34] LABS: Calcium 9.8 mg/dL (8.7-10.4)
[2025-04-15 07:39] LABS: BUN/Creatinine Ratio 13.6 (10.0-20.0); Blood Urea Nitrogen 11 mg/dL (9-23); Glucose 135 mg/dL (74-106)
--- NOTE | 2025-04-15 08:16 | DVHINCON2 ---
Date of service: Apr 15, 2025 Referring Physician HOSPITALIST Reason for Consultation MENORRHAGIA WITH ANEMIA History of Present Illness PT IS ADMITTEDD FOR GENERALIZED WEAKNESS,FATIGUE AND ANEMIA.HER PCP SENT HER TO ER FOR HGB OF 6,PT REPORTS HEAVY MENSES ALL HER LIFE .SONO SHOWS NL FINDINGS Past Medical History ASTHMA,ANEMIA Past Surgical History NA Family History NA Social History NA,PAP LAST YR HAD COLPOSCOPY FOR ABN PAP Patient Family History: Diabetes mellitus G8 FATHER Allergies: Coded Allergies: NO KNOWN ALLERGIES (Unverified , 01/09/22) Home Meds Active Scripts Ondansetron Odt 4MG Tab (ZOFRAN PO) 4 Mg Tb, 4 MG PO Q8HP PRN for 5 Days, #15 TAB ODT TAB-DISSOLVE IN MOUTH, THEN SWALLOW Prov:SHANNAN DELACRUZ NP 04/11/24 Sumatriptan Succinate (Sumatriptan Succinate) 50 Mg Tab, 50 MG PO BIDPRN PRN for 5 Days, #10 TAB Prov:SHANNAN DELACRUZ NP 04/11/24 Amoxicillin & Pot Clavulanate (Amoxicillin/Potassium Cla) 875 Mg Tab, 1 TAB PO BID for 7 Days, #14 TAB 0 Refills Prov:SANDRA CASTELLANOS 11/16/22 Prednisone (Prednisone) 20 Mg Tab, 20 MG PO BID for 5 Days, #10 TAB 0 Refills Prov:SANDRA CASTELLANOS 11/16/22 Meclizine HCl (Meclizine 25) 25 Mg Tab, 25 MG PO DAILY for 10 Days, #10 TAB Prov:YEFRI UNDERWOOD MD 01/10/22 Review of Systems Constitutional: no fever, chill, weight loss HEENT: no eye pain, no hearing loss, no oral lesion, no scleral icterus Heart: no chest pain, no chest pressure Lung: no cough, no dyspnea with exertion Abdomen: see HPI : no pain with urination, normal appearing urine Musculoskeletal: no joint pain, no muscle pain Neurological: no seizure, no loss of sensation, no weakness in extremities Pysch: no depression, no anxiety Derm: no rash, no jaundice Vital Signs Vital Signs Date Time Temp Pulse Resp B/P (MAP) Pulse Ox O2 Delivery O2 Flow Rate FiO2 04/15/25 05:00 97.5 75 18 124/86 (99) 99 97.5 04/14/25 20:00 Room Air* 0 21 Physical Exam SKIN: [NL] HEENT: [PALE CONJUCTIVAE] NECK: [NL] CARDIAC: [RRR] PULMONARY: [CTA] ABDOMEN: [OBESE,SOFT,NT] MUSCULOSKELETAL: [NL] NEURO: [NL] PELVIC-SCANT BLOOD NOTED,UTERUS SMALL SIZE,CX NL Labs/Diagnostic Data Labs Test 04/15/25 05:29 04/14/25 06:33 04/14/25 01:50 04/13/25 14:55 Range/Units White Blood Count 9.0 # 4.4-10.8 10^3/uL Red Blood Count 4.88 4.0-5.20 10^6/uL Hemoglobin 8.8 L 12.2-16.2 g/dL Hematocrit 30.0 L 36.0-46.0 % Mean Corpuscular Volume 61.4 L 80.0-100.0 fL Mean Corpuscular Hemoglobin 18.1 L 28.0-32.0 pg Mean Corpuscular Hemoglobin Concent 29.5 L 32.0-36.0 g/dL Red Cell Distribution Width 32.5 H 11.8-14.3 % Platelet Count 247 140-450 10^3/uL Mean Platelet Volume 8.4 6.9-10.8 fL Neutrophils (%) (Auto) 61.6 37.0-80.0 % Lymphocytes (%) (Auto) 30.1 10.0-50.0 % Monocytes (%) (Auto) 5.3 0.0-12.0 % Eosinophils (%) (Auto) 2.5 0.0-7.0 % Basophils (%) (Auto) 0.5 0.0-2.0 % Neutrophils # (Auto) 5.5 1.6-8.6 10 ^3/uL Lymphocytes # (Auto) 2.7 0.4-5.4 10 ^3/uL Monocytes # (Auto) 0.5 0-1.3 10 ^3/uL Eosinophils # (Auto) 0.2 0-0.8 10 ^3/uL Basophils # (Auto) 0 0-0.2 10 ^3/uL Nucleated Red Blood Cells 0.1 % Sodium Level 141 136-145 mmol/L Potassium Level 4.0 3.5-5.1 mmol/L Chloride Level 106 98-107 mmol/L Carbon Dioxide Level 27 20-31 mmol/L Anion Gap 8 5-15 Blood Urea Nitrogen 11 9-23 mg/dL Creatinine 0.81 0.550-1.02 mg/dL Glomerular Filtration Rate Calc 95 >90 mL/min BUN/Creatinine Ratio 13.6 10.0-20.0 Serum Glucose 135 H 74-106 mg/dL Calcium Level 9.8 8.7-10.4 mg/dL Platelet Estimate Adequate Hypochromasia (manual) Moderate Anisocytosis (manual) Moderate Microcytosis Moderate Ovalocytes Few Stomatocytes Few Total Bilirubin 0.7 0.2-1.0 mg/dL Aspartate Amino Transferase (AST) 17 13-40 U/L Alanine Aminotransferase (ALT) 21 7-40 U/L Alkaline Phosphatase 75 46-116 U/L Total Protein 7.1 5.7-8.2 g/dL Albumin 4.2 3.2-4.8 g/dL Urine Color Light-yellow Yellow Urine Clarity Clear Clear Urine pH 6.5 5.0-9.0 Urine Specific [place] 1.015 1.001-1.035 Urine Protein Negative Negative Urine Ketones Negative Negative Urine Blood 2+ H Negative /uL Urine Nitrite Negative Negative Urine Bilirubin Negative Negative Urine Urobilinogen Normal Negative mg/dL Urine Leukocyte Esterase Negative Negative /uL Urine RBC <1 0 - 4 /hpf Urine Microscopic WBC < 1 0-5 /HPF Urine Squamous Epithelial Cells Few <5 /hpf Urine Bacteria Few H None Seen /hpf Urine Yeast (Budding) Occasional None Seen /hpf Urine Glucose Normal Normal mg/dL Urine Opiates Screen Neg NEGATIVE Urine Fentanyl Screen Neg NEGATIVE Urine Barbiturates Screen Neg NEGATIVE Urine Phencyclidine Screen Neg NEGATIVE Urine Amphetamines Screen Neg NEGATIVE Urine Benzodiazepines Screen Neg NEGATIVE Urine Cocaine Screen Neg NEGATIVE Urine Cannabinoids Screen Neg NEGATIVE Test 04/13/25 13:19 04/13/25 03:35 04/13/25 00:55 04/13/25 00:08 Range/Units Reticulocyte Count (auto) 2.67 H 0.5-1.5 % Lactic Acid Level 1.0 0.4-2.0 mmol/L Beta HCG, Quantitative 1.6 1.5-4.2 mIU/mL Troponin I High Sensitivity < 3 L </=34 ng/L Prothrombin Time 10.4 9.3-11.8 sec Prothrombin Time INR 0.98 0.9-1.15 Activated Partial Thromboplast Time 24.5 24.5-34.5 SEC Primary Diagnosis MENORRHAGIA ANEMIA 2' Diagnosis/Comorbidities MORBID OBESITY Plan FU WITH ME OUTPT FOR FURTHER MANAGEMENT WILL SIGN OFF THANK YOU Plan discussed with: Patient Visit Coding OBGYN Date of Service: Apr 15, 2025 Billing Provider: BEN FAJARDO DO [employer] OFFICER Common Visit Codes: 82467-OOPTYPK INP/OBS CARE (HIGH) [employer] OFFICER Consultation Codes: 50780-[id number] CONSULT <110MIN BEN FAJARDO DO Apr 15, 2025 08:16
[2025-04-15] MEDS ORDERED: FER325T PO (15:14)
--- NOTE | 2025-04-15 15:28 | DVHDSRES ---
Discharge Summary Date of Admission Resident Creating Document: VANIA FARRELL MCLAIN RESIDENT Apr 13, 2025 at 02:18 Date of Discharge: Apr 15, 2025 Labs/Diagnostic Data: Laboratory Results Test 04/15/25 05:29 04/14/25 06:33 04/14/25 01:50 04/13/25 14:55 White Blood Count 9.0 10^3/uL (4.4-10.8) Red Blood Count 4.88 10^6/uL (4.0-5.20) Hemoglobin 8.8 g/dL (12.2-16.2) Hematocrit 30.0 % (36.0-46.0) Mean Corpuscular Volume 61.4 fL (80.0-100.0) Mean Corpuscular Hemoglobin 18.1 pg (28.0-32.0) Mean Corpuscular Hemoglobin Concent 29.5 g/dL (32.0-36.0) Red Cell Distribution Width 32.5 % (11.8-14.3) Platelet Count 247 10^3/uL (140-450) Mean Platelet Volume 8.4 fL (6.9-10.8) Neutrophils (%) (Auto) 61.6 % (37.0-80.0) Lymphocytes (%) (Auto) 30.1 % (10.0-50.0) Monocytes (%) (Auto) 5.3 % (0.0-12.0) Eosinophils (%) (Auto) 2.5 % (0.0-7.0) Basophils (%) (Auto) 0.5 % (0.0-2.0) Neutrophils # (Auto) 5.5 10 ^3/uL (1.6-8.6) Lymphocytes # (Auto) 2.7 10 ^3/uL (0.4-5.4) Monocytes # (Auto) 0.5 10 ^3/uL (0-1.3) Eosinophils # (Auto) 0.2 10 ^3/uL (0-0.8) Basophils # (Auto) 0 10 ^3/uL (0-0.2) Nucleated Red Blood Cells 0.1 % Sodium Level 141 mmol/L (136-145) Potassium Level 4.0 mmol/L (3.5-5.1) Chloride Level 106 mmol/L (98-107) Carbon Dioxide Level 27 mmol/L (20-31) Anion Gap 8 (5-15) Blood Urea Nitrogen 11 mg/dL (9-23) Creatinine 0.81 mg/dL (0.550-1.02) Glomerular Filtration Rate Calc 95 mL/min (>90) BUN/Creatinine Ratio 13.6 (10.0-20.0) Serum Glucose 135 mg/dL (74-106) Calcium Level 9.8 mg/dL (8.7-10.4) Platelet Estimate Adequate Hypochromasia (manual) Moderate Anisocytosis (manual) Moderate Microcytosis Moderate Ovalocytes Few Stomatocytes Few Total Bilirubin 0.7 mg/dL (0.2-1.0) Aspartate Amino Transferase (AST) 17 U/L (13-40) Alanine Aminotransferase (ALT) 21 U/L (7-40) Alkaline Phosphatase 75 U/L (46-116) Total Protein 7.1 g/dL (5.7-8.2) Albumin 4.2 g/dL (3.2-4.8) Urine Color Light-yellow (Yellow) Urine Clarity Clear (Clear) Urine pH 6.5 (5.0-9.0) Urine Specific [place] 1.015 (1.001-1.035) Urine Protein Negative (Negative) Urine Ketones Negative (Negative) Urine Blood 2+ /uL (Negative) Urine Nitrite Negative (Negative) Urine Bilirubin Negative (Negative) Urine Urobilinogen Normal mg/dL (Negative) Urine Leukocyte Esterase Negative /uL (Negative) Urine RBC <1 /hpf (0 - 4) Urine Microscopic WBC < 1 /HPF (0-5) Urine Squamous Epithelial Cells Few /hpf (<5) Urine Bacteria Few /hpf (None Seen) Urine Yeast (Budding) Occasional /hpf (None Urine Glucose Normal mg/dL (Normal) Urine Opiates Screen Neg (NEGATIVE) Urine Fentanyl Screen Neg (NEGATIVE) Urine Barbiturates Screen Neg (NEGATIVE) Urine Phencyclidine Screen Neg (NEGATIVE) Urine Amphetamines Screen Neg (NEGATIVE) Urine Benzodiazepines Screen Neg (NEGATIVE) Urine Cocaine Screen Neg (NEGATIVE) Urine Cannabinoids Screen Neg (NEGATIVE) Test 04/13/25 13:19 04/13/25 03:35 04/13/25 00:55 04/13/25 00:08 Reticulocyte Count (auto) 2.67 % (0.5-1.5) Lactic Acid Level 1.0 mmol/L (0.4-2.0) Beta HCG, Quantitative 1.6 mIU/mL (1.5-4.2) Troponin I High Sensitivity < 3 ng/L (</=34) Prothrombin Time 10.4 sec (9.3-11.8) Prothrombin Time INR 0.98 (0.9-1.15) Activated Partial Thromboplast Time 24.5 SEC (24.5-34.5) Other Laboratory Tests 04/15/25 05:29 Brief Hx & Hospital Course: The patient is a 39-year-old female with a history of asthma and anemia who presented with 3 weeks of generalized weakness, fatigue, and shortness of breath. Her PCP had drawn outpatient labs showing a hemoglobin of 6.6 g/dL and referred her to the Emergency Department for evaluation and management. On admission, she denied chest pain, fever, chills, abdominal discomfort, or genitourinary complaints. She was hemodynamically stable with normal oxygenation on room air. Physical exam was benign, and she was alert and oriented. Leslie lab findings on admission: Hemoglobin: 6.6 g/dL Hematocrit: 29.0% MCV: 61.4 fL (low) MCH: 18.1 pg (low) RDW: 32.5% (elevated) Peripheral smear showed moderate hypochromasia, anisocytosis, and microcytosis, consistent with iron deficiency anemia. She was transfused with 2 units of packed red blood cells, after which her hemoglobin rossana to 9.0 g/dL and hematocrit to 30%. She reported improved energy and reduced fatigue. Oral ferrous sulfate was initiated during hospitalization to replenish iron stores. Further workup included: Pelvic ultrasound: Uterus: 3.3 x 2.9 x 2.9 cm with heterogeneous echotexture Endometrium: 1 cm thickness (normal range) Ovaries: 1 cm (right) and 1.1 cm (left) dominant follicular cysts No adnexal mass or free fluid Impression: No structural cause of bleeding. Findings consistent with physiologic ovarian changes. Urinalysis: 2+ blood, few RBCs, occasional budding yeast, few bacteria No leukocyte esterase or nitrites No evidence of UTI; findings likely due to contamination Coagulation studies: INR: 0.98 PT: 10.4 aPTT: 24.5 All within normal limits Stool occult blood test and von Willebrand factor antigen were ordered to rule out other sources of blood loss and coagulopathy; The patient was monitored closely. She remained afebrile, hemodynamically stable, and her symptoms steadily improved. She was encouraged to ambulate, tolerated oral intake, and was discharged in stable condition. Consults/Reason for consult [facility] Specialist: Evaluate chronic menorrhagia Review pelvic ultrasound results Address hormonal/surgical treatment options Operations or Procedures PATIENT: ERON HILARIO ACCT: [id number] UNIT: [id number] : 1985 LOC: [facility] / BED: [facility] / A AGE / SEX: 39 / F ADM STATUS: ADM IN SERVICE 1423 ORDERING PHYSICIAN: DOMINICK TALAVERA PROCEDURE(s): PELUS - PELVIC REASON: eval uterine lining and cause of bleeding ORDER NUMBER(s): [id number], ACCESSION NUMBER(s): [id number] Procedure: US PELVIC Study Date and Requested Time: 04/13/2025 02:44 PM Study Description: US PELVIC History: eval uterine lining and cause of bleeding Comparison: None Technique: Multiple transabdominal and transvaginal high resolution craig-scale images obtained of the uterus and adnexa with color Doppler for evaluation of adnexal blood flow and vascularity as indicated. Findings: Uterus measures 3.3 x 2.9 x 2.9 cm, with heterogeneous echotexture. Endometrium within normal limits, measuring 1 cm in thickness with smooth contour. Cervix within normal limits. Right ovary measures 3.3 x 2.9 x 2.9 cm with a 1 cm cyst /dominant follicle. Left ovary measures 3 x 2.3 x 2.6 cm with a 1.1 cm cyst /dominant follicle. Normal ovarian color Doppler flow bilaterally. No evidence of cystic or solid ovarian lesions. No evidence of free fluid in the cul-de-sac. Impression: Heterogeneous echotexture of the uterus. Endometrial thickness of 1 cm which is within normal limits. Recommend correlation with phase of menstrual cycle. 1 cm right and 1.1 cm left ovarian cyst/dominant follicles. ATED BY: CECE ACHARYA DO DICTATED DATE/TIME: 04/13/25 9547 SIGNED BY: CECE ACHARYA DO SIGNED DATE/TIME: 04/13/25 9202 CC: Condition at Discharge: Good Final Diagnosis/Problems List Primary: Acute on chronic microcytic hypochromic anemia secondary to menorrhagia Secondary: 2. Menorrhagia due to chronic irregular heavy menstrual bleeding 3. Morbid obesity 4. Controlled asthma Discharge Disposition: Home Discharge Instruct/Medications Diet: Regular, See Comment Diet comment: Low carb diet with regular physcical activity. Activity: No Restrictions, As Tolerated Follow Up/Referral: [facility]PET [facility] Specialist Appointment Timeline: Within 12 weeks of discharge (no later than April 29, 2025) Purpose: Evaluate chronic menorrhagia Review pelvic ultrasound results Address hormonal/surgical treatment options Clinic: [Insert [facility] clinic name or patients regular provider] Instructions: Bring discharge summary, pelvic ultrasound report, and list of medications 2. Primary Care Provider (PCP) Timeline: Within 12 weeks (by April 29, 2025) Purpose: Monitor hemoglobin and hematocrit Review reticulocyte count and pending tests Manage long-term anemia care Instructions: Bring updated lab results and medication list Medications: Ferrous Sulfate 325 mg PO once daily Take with food. Continue for at least 3 months or as directed by physician. New Medications: Ferrous Sulfate (Ferrous Sulfate) 325 Mg Tb 325 MG PO DAILY for 30 Days, #30 TAB 2 Refills Continued Medications: Amoxicillin & Pot Clavulanate (Amoxicillin/Potassium Cla) 875 Mg Tab 1 TAB PO BID for 7 Days, #14 TAB 0 Refills Meclizine HCl (Meclizine 25) 25 Mg Tab 25 MG PO DAILY for 10 Days, #10 TAB Ondansetron Odt 4MG Tab (Zofran Po) 4 Mg Tb 4 MG PO Q8HP PRN for 5 Days, #15 TAB ODT TAB-DISSOLVE IN MOUTH, THEN SWALLOW Prednisone (Prednisone) 20 Mg Tab 20 MG PO BID for 5 Days, #10 TAB 0 Refills Sumatriptan Succinate (Sumatriptan Succinate) 50 Mg Tab 50 MG PO BIDPRN PRN for 5 Days, #10 TAB Care Plan: Continue iron supplementation to replenish iron stores Monitor for recurrence of anemia symptoms, such as fatigue, dizziness, or palpitations Watch for signs of heavy vaginal bleeding, and record menses patterns Follow-up labs to be ordered by outpatient PCP or CARPET SEWER, including repeat CBC, iron panel, and pending lab results Outpatient CARPET SEWER referral to evaluate long-term options for menorrhagia management (e.g., hormonal therapy, IUD, or surgical options) Scheduled Amoxicillin & Pot Clavulanate (Amoxicillin/Potassium Cla), 1 TAB PO BID Ferrous Sulfate (Ferrous Sulfate), 325 MG PO DAILY Meclizine HCl (Meclizine 25), 25 MG PO DAILY Prednisone (Prednisone), 20 MG PO BID Scheduled PRN Ondansetron Odt 4MG Tab (Zofran Po), 4 MG PO Q8HP PRN Sumatriptan Succinate (Sumatriptan Succinate), 50 MG PO BIDPRN PRN Discharge Statement: "Patient was advised to return to the ER or call 911 if any headaches, dizziness, shortness of breath, chest pain, abdominal pain, bleeding, fevers, or worsening of medical condition. Patient was counseled about treatment plan, medications, possible side effects, patientverbalized understanding. All questions were answered to the best of my ability. This discharge took greater then 30 minutes in planning, reviewing documentation, counseling the patient, and discussing with other team members." ASSESSMENT ASSESSMENT Assessment Primary: Acute on chronic microcytic hypochromic anemia secondary to menorrhagia Secondary: 2. Menorrhagia due to chronic irregular heavy menstrual bleeding 3. Morbid obesity 4. Controlled asthma VANIA FARRELL RESIDENT Apr 15, 2025 15:28
--- NOTE | 2025-04-18 07:43 | ECG ---
[facility] Test Date: 2025-04-13 Test Time: 13:26:28 Pat Name: ERON HILARIO Department: Respiratoy Room: 0217T A Gender: F Lead Radiation Therapist: FARNAZ NOLAN LVN : 1985 Requested By: DOMINICK SCRUGGS Order Number: [id number] Reading MD: Rambo Matute Measurements Intervals [place] Rate: 67 P: 44 NM: 153 QRS: 33 QRSD: 89 T: 21 QT: 417 QTc: 441 Interpretive Statements Sinus rhythm Electronically Signed On 04-19-2025 19:15:01 PDT by Rambo Matute Please click the below link to view image of tracing.
== END 2025-04-15 16:45 | disposition home or self-care (01) | DRG 812 ==
LOC: ER 23:01 → OVERFLOW 04-13 02:18 → TELE-CENTR 04-13 03:58
PROVIDERS: ADMIT Nurse Practitioner Family; ATTEND Nurse Practitioner Family
PROC: 30233N1 Transfusion of Nonautologous Red Blood Cells into Peripheral Vein, Percutaneous Approach (ICD-10-PCS; principal; 2025-04-13)
DX: D50.9 Iron deficiency anemia, unspecified (principal); N92.1 Excessive and frequent menstruation with irregular cycle; J45.909 Unspecified asthma, uncomplicated; E66.01 Morbid (severe) obesity due to excess calories; Z79.2 Long term (current) use of antibiotics; Z79.899 Other long term (current) drug therapy; Z68.38 Body mass index [BMI] 38.0-38.9, adult; Z83.3 Family history of diabetes mellitus
CPT/HCPCS: 36415; 76856; 80048; 80053; 80307; 81001; 83605; 84484; 84702; 85014; 85018; 85025; 85045; 85246; 85610; 85730; 86850; 86900; 86901; 86920; 93005; 96360; G0378